=== PATIENT | female | born 1970 ===

== ENCOUNTER → 2018-11-11 | Outpatient (REF) | payer BC ==
[2018-11-19 14:10] LABS: HPV LOW VOL RFLX Negative (Negative)
== END ==
LOC: M LAB LCGH 11:59
PROVIDERS: ATTEND Nurse Practitioner Adult Health
DX: Z12.4 Encounter for screening for malignant neoplasm of cervix (principal); R87.610 Atypical squamous cells of undetermined significance on cytologic smear of cervix (ASC-US)
CPT/HCPCS: 87624; G0123